=== PATIENT | female | born 1955 | race Caucasian/White ===

== ENCOUNTER 2019-01-07 05:35 | Day surgery (SDC) | payer OTHER ==
[2019-01-02 08:36] LABS: URINE BILIRUBIN NEGATIVE (Negative); URINE BLOOD NEGATIVE (Negative); URINE CLARITY CLEAR; URINE COLOR YELLOW; URINE GLUCOSE-RANDOM* NEGATIVE (Negative); URINE KETONES NEGATIVE (Negative); URINE LEUKOCYTES-REFLEX NEGATIVE (Negative); URINE NITRITE-REFLEX NEGATIVE (Negative); URINE PROTEIN (DIPSTICK) NEGATIVE (Negative); URINE UROBILINOGEN 0.2 E.U./dl (0.2-1.0)
[2019-01-02 08:37] LABS: HEMATOCRIT 42.9 % (37.0-47.0); HEMOGLOBIN 14.3 gm/dL (12.0-15.0); MCH 30.2 pg (26.0-34.0); MCHC 33.3 g/dL (28.0-37.0); MCV 90.9 fL (80.0-100.0); RBC 4.71 mil/uL (4.20-5.00); WBC 5.6 thou/uL (4.0-11.0)
--- NOTE | 2019-01-02 08:40 | EKG ---
[place] [address] [facility] [address] ELECTROCARDIOGRAM REPORT Name: KAYLA RAYO Room #: PRE [facility] M.R.#: [id number] ������������������ Admission: ������������������ Attend Phys: Bhanu Soto MD Discharge: ������������������ Date of : 55 Report #: [id number] ����������������������������������������������������������������� [id number] THIS REPORT FOR: //name// [facility] Test Date: 2019-01-02 Test Time: 08:36:57 Pat Name: KAYLA RAYO Department: Room: Gender: F Card Lacer: BRIAN MARTINEZ : 1955 Requested By: Bhanu Soto Order Number: [id number] MD: Fernie Tian Measurements Intervals [employer] Rate: 76 P: 39 WI: 176 QRS: 70 QRSD: 104 T: 14 QT: 391 QTc: 440 Interpretive Statements Sinus rhythm No significant abnormality No previous ECG available for comparison Electronically Signed On 01-02-2019 8:39:52 CDT by Fernie Tian [email or web address] ��������������������������������������������� <ELECTRONICALLY SIGNED> ���������������������������������������� By: Fernie Tian MD, [facility] ��������������������������������������������� 01/02/19 0839 [id number] [id number] Fernie Tian MD, FACC /EPI
[2019-01-02 08:45] LABS: ALBUMIN 3.6 g/dL (3.4-5.0); CALCIUM 9.4 mg/dL (8.5-10.1); CREATININE 0.9 mg/dL (0.6-1.0)
[2019-01-02 08:57] LABS: PROTIME 9.7 Seconds (9.3-11.4)
[~2019-01-07] VITALS: Ht 172.7 cm; Wt 78.9 kg
[~2019-01-07 05:35] MED LIST: NICOTINE GUM2 MG PO; TRAMADOL 50 MG50 MG PO; TYLENOL EXTRA500 MG PO
[2019-01-07 08:26] VITALS: BP 134/73
[2019-01-07 12:07] VITALS: BP 111/61
[2019-01-07 17:22] VITALS: BP 111/61
[2019-01-07 19:20] VITALS: BP 111/61
--- NOTE | 2019-01-07 21:39 | O ---
[facility] [place] [address] OPERATIVE REPORT Name: KAYLA RAYO Room #: DEP [facility] M.Messi.#: [id number] Admission: 01/07/19 ������������������ Attend Phys: Bhanu Soto MD Discharge: 01/07/19 ������������������ Date of : 55 Report #: [id number] THIS REPORT FOR: //name// CC: FAM unknown [place] Bhanu Soto DATE OF SERVICE: 01/07/2019 PREOPERATIVE DIAGNOSIS: Left hip osteoarthritis. POSTOPERATIVE DIAGNOSIS: Left hip osteoarthritis. PROCEDURE: Left total hip arthroplasty. SURGEON: Bhanu Soto MD ANESTHESIA: LMA. PROJECT MANAGEMENT INSTRUCTOR: None. IMPLANTS: [employer] size 15 high offset Synergy press-fit stem with a size 56 R3 acetabular cup with one acetabular screw and a size 40+4 Oxinium head. ESTIMATED BLOOD LOSS: 100 mL. COMPLICATIONS: None. SPECIMENS: None. CONDITION UPON LEAVING THE OPERATING ROOM: Stable. INDICATIONS FOR PROCEDURE: The patient is a 63-year-old female with severe left hip osteoarthritis. She had failed conservative measures for this and after discussion with her, she elected for left total hip arthroplasty. DESCRIPTION OF PROCEDURE: Risks, benefits, alternatives, complications were discussed in detail with the patient including but not limited to risk of anesthesia, risk of damage to nerves, arteries, blood vessels, risk for infection, bleeding, risk for continued hip pain, leg length discrepancy, instability, and need for operation. Informed consent was obtained from the patient. Left hip was appropriately marked in the preoperative holding area. IV Ancef was given for preoperative antibiotics. She was brought to the operating room and placed in supine position on the operating room table. LMA anesthesia was induced without complication. She was then placed in the right [address] [address] OPERATIVE REPORT Name: KAYLA RAYO Room #: DEP [facility] M.R.#: [id number] Admission: 01/07/19 ������������������ Attend Phys: Bhanu Soto MD Discharge: 01/07/19 ������������������ Date of : 55 Report #: [id number] lateral decubitus position with the left hip uppermost. Left hip and lower extremity were prepped and draped in normal sterile fashion. Timeout was performed properly identifying the patient and procedure as well as the instrumentation and implants. All in the operating room were in agreement. Standard posterior approach to the hip was made with 10 blade through the skin. Dissection was taken down to the fascia with Bovie cautery and the fascia was cleaned off with Moncada elevator. Fresh 10 blade was used to make a fascial incision. This was taken proximally and distally with curved Soto scissor. Charnley retractor was placed. Trochanteric bursa was taken down with Bovie cautery. Piriformis tendon was identified, tagged, and taken down with Bovie cautery. Short external rotators were also taken down with Bovie cautery. Capsulotomy was made and capsule ends were tagged for later repair. The hip was dislocated. There was extensive osteoarthritic change of the femoral head. Femoral neck cut was made 1 cm proximal to lesser trochanter based on preoperative templating and the femoral head was removed. Deep acetabular retractors were placed. Labrum was removed sharply. Pulvinar was removed with Bovie cautery. Acetabulum was then sequentially reamed up to a size 56 at which point, there was excellent bleeding cancellous bone. This was trialed with a size 55 cup and found to have a good fit. A final size 56 R3 acetabular cup was then placed and seated. One acetabular screw was placed for backup fixation and a polyethylene liner for a 40 head was placed. Attention was turned to the femur. This was reamed and broached up to a size 15, at which point a size 15 broach was stable, was trialed with a high offset neck and a 40+0 head. Hip was reduced, taken through range of motion, found to be stable, found to be somewhat short on the left compared to the right. It was felt we could make up for this with the final implant. Hip was dislocated and broach was removed. A final size 15 high offset Synergy press fit stem was placed. This was then trialed with a 40+4 head. Hip was reduced, taken through range of motion, found to be stable, found to have equal leg lengths. Hip was dislocated one last time and a final size 40+4 Oxinium head was placed. Hip was reduced, taken through range of motion, found to be stable, found to have equal leg lengths. The joint was thoroughly irrigated with normal saline. Periarticular injection consisting of morphine, ropivacaine, epinephrine, and Toradol was placed around the hip joint capsule. A gram of vancomycin was placed deep in the joint. The capsule and piriformis were repaired with 0 FiberWire. Fascia was closed with 0 Vicryl, skin was closed with 2-0 Vicryl, 3-0 Monocryl. Dermabond and a BOB dressing was applied. The patient tolerated this procedure well and went to the recovery room under care of anesthesia postoperatively. ��������������������������������������������� <ELECTRONICALLY SIGNED> ���������������������������������������� By: Bhanu Soto MD ��������������������������������������������� 01/07/19 2139 1007 1154 Bhanu Soto MD /nt
== END 2019-01-07 19:25 | disposition home or self-care (01) ==
LOC: OR 05:35 → TBA 05:35 → OR 05:47 → 4E 12:01 → OR 15:40
PROVIDERS: Orthopaedic Surgery
DX: M16.12 Unilateral primary osteoarthritis, left hip (principal); Z87.891 Personal history of nicotine dependence; Z98.890 Other specified postprocedural states; Z79.899 Other long term (current) drug therapy
CPT/HCPCS: 10783; 50010; 50101; 50382; 50414; 53000; 53078; 53368; 54118; 56524; 56527; 56528; 56530; 57095; 57103; 62110; 62900; 70005